=== PATIENT | male | born 1995 | race Caucasian/White ===

== ENCOUNTER 2023-02-18 22:38 | Emergency (ER) | payer SELFPAY ==
--- NOTE | 2023-02-18 22:55 | EDPHYS ---
Physician Documentation [facility] Name: Sonny Da Silva Age: 27 yrs Sex: Male : 1995 Arrival Date: 02/18/2023 Time: 22:38 Bed Treatment Private MD: ED Physician Darrell Oseguera HPI: 02/19 00:05 This 27 yrs old Male presents to ER via Ambulatory with complaints of Mouth Pain. kb 00:08 The patient presents with pain, redness, swelling. The problem is located in the mouth. kb Onset: The symptoms/episode began/occurred 3 week(s) ago. Duration: The symptoms are continuous. Modifying factors: The symptoms are alleviated by nothing, the symptoms are aggravated by nothing. Associated signs and symptoms: Pertinent positives: pain, redness in area, swelling, Pertinent negatives: fever. Severity of symptoms: At their worst the symptoms were moderate, in the emergency department the symptoms are unchanged. The patient has experienced similar episodes in the past. The patient has not recently seen a physician. Patient reports dental pain with gum redness and swelling over the last 2 and half years intermittently. This episode started 3 weeks ago. States pain is diffuse to upper teeth and gums. Denies fever.. Historical: - Allergies: 02/18 22:54 No Known Allergies; pf1 - Home Meds: 22:54 None [Active]; pf1 - PMHx: 22:54 None; pf1 - PSHx: 22:54 None; pf1 - Immunization history:: Adult Immunizations up to date, Client reports having NOT received the Covid vaccine. Last tetanus immunization: > 10 years ago Flu vaccine is not up to date. - Social history:: Smoking status: Patient reports the use of cigarette tobacco products, smokes one-half pack cigarettes per day, Patient/guardian denies using alcohol, street drugs. ROS: 02/19 00:06 Constitutional: Negative for fever, chills, and weight loss. kb ENT: Positive for dental pain. All other systems are negative. Exam: 00:06 Constitutional: This is a well developed, well nourished patient who is awake, alert, kb and in no acute distress. Head/Face: Normocephalic, atraumatic. Cardiovascular: Regular rate and rhythm with a normal S1 and S2. No gallops, murmurs, or rubs. No pulse deficits. Respiratory: Respirations even and unlabored. No increased work of breathing. Talking in full sentences Skin: Warm, dry with normal turgor. Normal color. MS/ Extremity: Pulses equal, no cyanosis. Neurovascular intact. Full, normal range of motion. Neuro: Awake and alert, GCS 15, oriented to person, place, time, and situation. Moves all extremities. Normal gait. 00:06 ENT: Dental exam: dental caries, that is moderate, that is severe, diffusely, gum swelling, that is moderate, diffusely, missing teeth, pain, that is moderate, diffusely. Vital Signs: 02/18 22:48 BP 152 / 95; Pulse 77; Resp 18; Temp 98; Pulse Ox 100% ; Weight 61.23 kg; Height 5 ft. pf1 9 in. ; Pain 06/20; 22:48 Body Mass Index 19.94 (61.23 kg, 175.26 cm) pf1 22:48 Pain Scale: Adult pf1 MDM: 22:48 Patient medically screened. kb 02/19 00:07 Differential diagnosis: dental caries, gingivitis, dental abscess, gingivostomatitis. kb Data reviewed: vital signs, nurses notes. Counseling: I had a detailed discussion with the patient and/or guardian regarding: the historical points, exam findings, and any diagnostic results supporting the discharge/admit diagnosis, the need for outpatient follow up, a dentist, to return to the emergency department if symptoms worsen or persist or if there are any questions or concerns that arise at home. 00:07 ED course: Patient educated on need for follow-up with a dentist. Patient states he has kb in the past and was unable to have work completed due to financial reasons. Educated on dental schools in [facility]. . Administered Medications: 02/18 23:00 Drug: Hydrocodone-Acetaminophen PO (7.5 mg-325 mg) 1 tabs Route: PO; pf1 23:04 Follow up: Response: No adverse reaction; Marked relief of symptoms; Pain is decreased; pf1 RASS: Alert and Calm (0) 23:00 Drug: Amoxicillin-Clavulanate PO 875 mg Route: PO; pf1 23:04 Follow up: Response: No adverse reaction pf1 Disposition Summary: 02/18/23 22:54 Discharge Ordered Location: Home kb Condition: Stable kb Diagnosis - Disorder of teeth and supporting structures, unspecified kb Followup: kb - With: Emergency Department - When: As needed - Reason: Worsening of condition Followup: kb - With: Private Physician - When: 2 - 3 days - Reason: Recheck today's complaints, Continuance of care, Re-evaluation by your physician Discharge Instructions: - Discharge Summary Sheet kb - Dental Pain, [id number] kb - Dental Abscess, [id number] kb Forms: - Medication Reconciliation Form kb - Thank You Letter kb - Antibiotic Education kb - Prescription Opioid Use kb Prescriptions: - Augmentin 875-125 mg Oral Tablet - take 1 tablet by ORAL route every 12 hours for 10 days; 20 tablet; Refills: 0, kb Product Selection Permitted Signatures: Slime Lomas FNP-C FNP-Brigette Cardenas, RN RN pf1
--- NOTE | 2023-02-18 22:55 | ER ---
Nurse's Notes [facility] Name: Sonny Da Silva Age: 27 yrs Sex: Male : 1995 Arrival Date: 02/18/2023 Time: 22:38 Bed Treatment Private MD: Diagnosis: Disorder of teeth and supporting structures, unspecified Presentation: 02/18 22:48 Chief complaint: Patient states: upper mouth pain of 10 with redness and swelling to pf1 gums,onset worse in the past 3 weeks. Patient stated has chronic gingivitis for 2.5 years. Coronavirus screen: Vaccine status: Patient reports being unvaccinated. Client denies travel out of the [place] in the last 14 days. Ebola Screen: Patient negative for fever greater than or equal to 101.5 degrees Fahrenheit, and additional compatible Ebola Virus Disease symptoms. Initial Sepsis Screen: Does the patient meet any 2 criteria? No. Patient's initial sepsis screen is negative. Does the patient have a suspected source of infection? No. Patient's initial sepsis screen is negative. Risk Assessment: Do you want to hurt yourself or someone else? Patient reports no desire to harm self or others. 22:48 Method Of Arrival: Ambulatory pf1 22:48 Acuity: RUBI 4 pf1 Historical: - Allergies: 22:54 No Known Allergies; pf1 - Home Meds: 22:54 None [Active]; pf1 - PMHx: 22:54 None; pf1 - PSHx: 22:54 None; pf1 - Immunization history:: Adult Immunizations up to date, Client reports having NOT received the Covid vaccine. Last tetanus immunization: > 10 years ago Flu vaccine is not up to date. - Social history:: Smoking status: Patient reports the use of cigarette tobacco products, smokes one-half pack cigarettes per day, Patient/guardian denies using alcohol, street drugs. Screenin:57 [facility] ED Fall Risk Assessment (Adult) History of falling in the last 3 months, pf1 including since admission No falls in past 3 months (0 pts) Confusion or Disorientation No (0 pts) Intoxicated or Sedated No (0 pts) Impaired Gait No (0 pts) Mobility Assist Device Used No (0 pt) Altered Elimination No (0 pt) Score/Fall Risk Level 0 - 2 = Low Risk Oriented to surroundings, Maintained a safe environment, Educated pt \T\ family on fall prevention, incl call for assistance when getting out of bed, Assessed \T\ reinforced patient's understanding of fall precautions, Provided non-skid footwear, Hourly rounding (assess needs \T\ fall precautionary measures) done, Used ambulatory aids as needed (educated on \T\ assisted with), Used gait belt as appropriate. Abuse screen: Denies threats or abuse. Nutritional screening: No deficits noted. Tuberculosis screening: No symptoms or risk factors identified. Assessment: 22:56 General: Appears in no apparent distress. uncomfortable, well groomed, well developed, pf1 Behavior is calm, cooperative, appropriate for age, quiet. Pain: Complains of pain in mouth Pain currently is 10 out of 10 on a pain scale. Neuro: No deficits noted. Level of Consciousness is awake, alert, obeys commands, Oriented to person, place, time, situation. Cardiovascular: No deficits noted. Capillary refill < 3 seconds Patient's skin is warm and dry. Respiratory: No deficits noted. Airway is patent Respiratory effort is even, unlabored, Respiratory pattern is regular, symmetrical. GI: No deficits noted. No signs and/or symptoms were reported involving the gastrointestinal system. : No deficits noted. No signs and/or symptoms were reported regarding the genitourinary system. EENT: Reports pain in upper mouth Pain is 10 out of 10 on a pain scale. Derm: No deficits noted. No signs and/or symptoms reported regarding the dermatologic system. Musculoskeletal: No deficits noted. No signs and/or symptoms reported regarding the musculoskeletal system. Vital Signs: 22:48 BP 152 / 95; Pulse 77; Resp 18; Temp 98; Pulse Ox 100% ; Weight 61.23 kg; Height 5 ft. pf1 9 in. ; Pain 10/10; 22:48 Body Mass Index 19.94 (61.23 kg, 175.26 cm) pf1 22:48 Pain Scale: Adult pf1 ED Course: 22:43 Patient arrived in ED. bp1 22:48 [facility]C [facility] kb 22:48 Darrell Oseguera MD is Attending Physician. kb 22:54 Triage completed. pf1 22:55 Arm band placed on right wrist. pf1 22:57 Allergy band placed. pf1 22:57 No provider procedures requiring assistance completed. Patient did not have IV access pf1 during this emergency room visit. 22:58 Brigette Braxton, RN is Primary Nurse. pf1 Administered Medications: 23:00 Drug: Hydrocodone-Acetaminophen PO (7.5 mg-325 mg) 1 tabs Route: PO; pf1 23:04 Follow up: Response: No adverse reaction; Marked relief of symptoms; Pain is decreased; pf1 RASS: Alert and Calm (0) 23:00 Drug: Amoxicillin-Clavulanate PO 875 mg Route: PO; pf1 23:04 Follow up: Response: No adverse reaction pf1 Medication: 23:00 VIS not applicable for this client. pf1 Outcome: 22:54 Discharge ordered by . gloria 23:06 Discharged to home ambulatory. pf1 23:06 Condition: stable 23:06 Discharge instructions given to patient, Instructed on discharge instructions, follow up and referral plans. Demonstrated understanding of instructions, follow-up care, medications, Prescriptions given X 1. 23:07 Patient left the ED. pf1 Signatures: Slime Lomas, JESSEE-Hany HOOKS-Kiki [facility] Brigette Braxton, RN RN pf1
[2023-02-18] MEDS ORDERED: AMOX/K CLAV 875 MG TAB ONE (23:10)
[2023-02-18] MEDS ORDERED: HYDROCODONE/APAP 7.5/325 MG TAB ONE (23:10)
[2023-02-18 23:58] VITALS: BP 152/95; TEMP 98; O2SAT 100
== END 2023-02-18 23:07 | disposition home or self-care (01) ==
LOC: ER 22:38
DX: K08.89 Other specified disorders of teeth and supporting structures (principal)
CPT/HCPCS: 99283